=== PATIENT | female | born 1970 | race Caucasian/White ===

== ENCOUNTER 2021-04-14 12:45 | Outpatient (RCR) | payer OTHER, SELFPAY | END 2021-04-15 14:13 | disposition home or self-care (01) | LOC: HO.WCC 12:45 | PROVIDERS: PCP Nurse Practitioner Adult Health; Visit Provider Surgery | DX: S90.424D Blister (nonthermal), right lesser toe(s), subsequent encounter (principal); L84 Corns and callosities | CPT/HCPCS: 99212 ==